=== PATIENT | male | born 1990 | race Caucasian/White ===

== ENCOUNTER 2025-03-06 15:56 | Emergency (ER) | payer SELFPAY ==
[2025-03-06 16:06] VITALS: BP 148/83; PULSE 94; TEMP 36.9; O2SAT 98
--- NOTE | 2025-03-06 17:55 | ED.GENADUL_ITS ---
Discharge Plan Disposition Patient Disposition: Home Condition: Stable Discharge Details Clinical Impression: Homeless, Anxiety Primary Care Provider: None,None ED Provider: Hola Quinones Home Meds and New Rx's Prescriptions: No Action No Known Home Meds Discharge Instructions Additional Instructions: I placed on our follow-up list trying establish with a primary care provider. If you feel more ill or feel you are suffering from emergent medical process return to emergency department for reevaluation. Stand Alone Forms: Portal Information [facility] General Mode of arrival: ambulatory . Date/Time Provider Initiated Documentation: 03/06/25 15:58 . Limitations to Documentation: no limitations . Information obtained by: patient . History of Present Illness 34 year old M presents to the emergency department with the chief complaint of homeless,anxiety, described as moderate, Patient started experiencing this day(s) (2) and it has been constant. No relieving factors improve symptom(s), No exacerbating factors reported . Patient notes no other symptoms.. Patient did receive the following treatments prior to arrival, none Related Data Home Medications ?Medication ?Instructions ?Recorded ?Confirmed Unknown [No Known Home Meds] 03/06/25 1 05/07/24 Allergies Allergy/AdvReac Type Severity Reaction Status Date / Time No Known Allergies Allergy Unverified 03/06/25 16:16 General Stated Complaint: Recheck KRYSTAL: 4 Review of Systems All systems reviewed & are unremarkable except as noted in HPI and below Constitutional Constitutional: Denies chills, Denies fever(s) and Denies weakness Cardiovascular Cardiovascular: Denies chest pain and Denies dyspnea Respiratory Respiratory: Denies dyspnea Gastrointestinal Gastrointestinal: Denies vomiting Neurologic Neurologic: Denies weakness Exam Const General: no acute distress Orientation: alert [facility] Head: normal to inspection Ears: external ears normal General nose exam: external nose normal Mouth: moist mucous membranes Eyes General: appearance normal, both eyes and all related structures Neck Neck: normal visual inspection Resp Effort & Inspection: normal respiratory effort and able to speak in complete sentences Cardio Rate: regular rate Skin General skin exam: no rashes or lesions noted Neuro General: patient alert and patient oriented x3 Extrem General: normal to inspection Psych Mental Status: mental status grossly normal Course Vital Signs Vital signs: Vital Signs Temperature 36.9 C 03/06/25 16:06 Pulse 94 H 03/06/25 16:06 Blood Pressure 148/83 H 03/06/25 16:06 Pulse Oximetry 98 03/06/25 16:06 Temperature 36.9 C 03/06/25 16:06 Pulse 94 H 03/06/25 16:06 Blood Pressure 148/83 H 03/06/25 16:06 Pulse Oximetry 98 03/06/25 16:06 Oxygen Delivery Method Room Air 03/06/25 16:06 Oxygen Flow Rate 0 03/06/25 16:06 Medical Decision Making 34-year-old male who states he has a history of anxiety and is recently been told he will be homeless comes in with request that we fill paperwork stating that he should not be homeless due to his underlying anxiety. He denies any SI or HI. He is clinically sober speaking in full sentences. He has no concerning findings on exam or history to require any lab work or imaging. I advised that this type of paperwork is not routinely filled out in the emergency department would have to see PCP as being in the emergency department I do not know his history in terms of his anxiety treatment or other therapies he is had. I am in a place him on a follow-up list to try and get established with a primary soon as possible. Differential Diagnosis Differential Diagnosis: anxiety, homelessness PFSH All Active Problems Anxiety (Chronic) Homeless (Acute) Social History Smoking/Tobacco Use Status: Current every day Tobacco Type: cigarettes Smoking risk assessment performed?: Yes Alcohol Intake: current Housing: homeless PAW Have you Been Recently Intoxicated or Drunk Within the Last 30 days?: Yes Have you Ever Experienced Previous Episodes of Alcohol Withdrawal?: No Have you ever Experienced Withdrawal Seizures?: No Have you ever Experienced Delirium Tremens(DT)s?: No Have you ever undergone Alcohol Rehabilitation Treatment (i.e, inpt ot outpatient treatment programs)?: No Have you ever Experienced Blackouts?: No Have you ever Combined Alcohol with other Downers within the last 90 days?: No Have you ever Combined Alcohol with any other Substance of Abuse during the last 90 days?: No Positive Blood Alcohol level on Presentation? [PCS.BAL]: No Evidence of Increased Autonomic Activity (i.e. HR>120, tremor, sweating, agitation, nausea)?: No Result: 1
== END 2025-03-06 18:15 | disposition home or self-care (01) ==
PROVIDERS: Emergency Provider Emergency Medicine
DX: F41.9 Anxiety disorder, unspecified (principal); Z59.00 Homelessness unspecified
CPT/HCPCS: 99283 ×2